=== PATIENT | female | born 1935 | race Native Hawaiian/Other Pacific Islander ===

== ENCOUNTER 2018-11-23 09:49 | Inpatient (IN) | payer MEDICARE, OTHER ==
[~2018-11-23] VITALS: Ht 167.6 cm; Wt 101.2 kg
[~2018-11-23 09:49] MED LIST: AMLO5TAB66 PO; BENA40TA9 PO; CHLO25TA3 PO; METF-444 PO; MONT10TA21 PO; PIOG30TA10 PO; POTA8TAB4 PO; SIMV-43 PO
[2018-11-23] MEDS ORDERED: LORazepam 2 MG/ML VIAL ONE (10:16)
[2018-11-23 10:17] LABS: BASOPHILS % (AUTO) 0.6 % (0.0-2.0); EOSINOPHILS % (AUTO) 0.7 % (1.0-6.0); HEMATOCRIT 46.4 % (36-46); HEMOGLOBIN 15.2 g/dL (12.0-16.0); LYMPHOCYTES # (AUTO) 1.7 K/uL (1.0-4.8); MEAN CORPUSCULAR HEMOGLOBIN 28.1 pg (26.0-34.0); MEAN CORPUSCULAR HGB CONC 32.8 G/dL (31.0-37.0); MEAN CORPUSCULAR VOLUME 86 fL (80-100); MONOCYTES # (AUTO) 0.5 K/uL (0.1-1.0); MONOCYTES % (AUTO) 5.5 % (2.0-9.0); NEUTROPHILS # (AUTO) 6.7 K/uL (1.8-7.7); NEUTROPHILS % (AUTO) 74.2 % (40.0-70.0); PLATELET COUNT (AUTO) 327 K/uL (150-450); RED BLOOD CELL COUNT(AUTO) 5.41 MIL/uL (4.00-5.20); RED CELL DISTRIBUTION WIDTH 14.4 % (11.5-14.5)
[2018-11-23 10:28] LABS: PROTHROMBIN TIME 10.4 SEC (9.4-11.6)
[2018-11-23] MEDS ORDERED: SODIUM CHLORIDE 0.9% 100 ML ONE (10:33)
[2018-11-23] MEDS ORDERED: IOVERSOL 350 MG/ML 100 ML VIAL ONE (10:33)
[2018-11-23 10:37] LABS: CALCIUM, TOTAL 9.6 mg/dL (8.8-10.5); CREATININE 1.09 mg/dL (0.60-1.30); POTASSIUM 3.5 mmol/L (3.5-5.1)
[2018-11-23] MEDS ORDERED: FEBU40T PO (10:41)
[2018-11-23] MEDS ORDERED: BACL10TA PO (10:41)
[2018-11-23] MEDS ORDERED: MAGOX PO (10:41)
[2018-11-23] MEDS ORDERED: OMEP20 PO (10:41)
[2018-11-23] MEDS ORDERED: ALBU8HFA PO (10:41)
[2018-11-23] MEDS ORDERED: FURO20 PO (10:41)
[2018-11-23] MEDS ORDERED: LOSA50TA64 PO (10:41)
[2018-11-23 10:43] LABS: ALBUMIN 3.9 g/dL (3.4-5.0); BILIRUBIN,TOTAL 0.9 mg/dL (0.1-1.0); TOTAL PROTEIN, SERUM 8.7 g/dL (6.4-8.2)
[2018-11-23] MEDS ORDERED: SODIUM CHLORIDE 0.9% 1,000 ML IV ONE ×2 (11:30→19:00)
[2018-11-23] MEDS ORDERED: AMLO10TA7 PO (11:44)
[2018-11-23] MEDS ORDERED: METF500T20 PO (11:44)
[2018-11-23] MEDS ORDERED: KDUR10 PO (11:44)
[2018-11-23] MEDS ORDERED: LORazepam 2 MG/ML VIAL IVP ONE ×2 (12:00→16:45)
[2018-11-23 14:16] LABS: APPEARANCE,URINE CLEAR (CLEAR); BILIRUBIN,URINE NEGATIVE (NEGATIVE); GLUCOSE, URINE (UA) 100 mg/dL (NEGATIVE); KETONES,URINE NEGATIVE (NEGATIVE); LEUKOCYTE ESTERASE ,URINE NEGATIVE (NEGATIVE); NITRATE,URINE NEGATIVE (NEGATIVE); OCCULT BLOOD,URINE TRACE (NEGATIVE); PH,URINE 7.5 (5.0-8.0); PROTEIN,URINE SEE CONFIRM (NEGATIVE); UROBILINOGEN,URINE 0.2 mg/dL (<=1.0)
[2018-11-23 14:22] LABS: AMPHET/METH SCREEN,URINE NEGATIVE (NEGATIVE); BARBITURATE SCREEN, URINE NEGATIVE (NEGATIVE); BENZODIAZEPINES SCREEN,URINE NEGATIVE (NEGATIVE); CANNABINOID SCREEN,URINE NEGATIVE (NEGATIVE); COCAINE SCREEN,URINE NEGATIVE (NEGATIVE); METHADONE SCREEN, URINE NEGATIVE (NEGATIVE); OPIATE SCREEN,URINE NEGATIVE (NEGATIVE)
[2018-11-23 14:28] LABS: PHENCYCLIDINE SCREEN,URINE NEGATIVE (NEGATIVE)
[2018-11-23 14:48] VITALS: BP 135/88
[2018-11-23 16:00] VITALS: BP 188/95
[2018-11-23] MEDS ORDERED: HydrALAZINE HCL 20 MG/ML VIAL IVP PRN (16:45)
[2018-11-23] MEDS ORDERED: DEXTROSE 50%-WATER 25 GM/50 ML SYRINGE IVP PRN (16:45)
[2018-11-23 16:58] LABS: SULFOSALICYLIC ACID,URINE 3+ (Negative); WBC,URINE 0-2 /HPF (0-5)
[2018-11-23 16:59] LABS: BACTERIA,URINE Few /HPF (None Seen); SQUAMOUS EPITHELIAL CELL,UR Few /LPF (None Seen)
[2018-11-23 18:08] LABS: THYROID STIMULATING HORMONE 3.47 uIU/mL (0.36-3.74)
[2018-11-23 19:45] VITALS: BP 157/78
[2018-11-23 23:33] VITALS: BP 154/75
[2018-11-24 03:55] LABS: GLUCOMETER DEV NAME(LOC) 5S.1; GLUCOSE,POINT OF CARE 167 MG/DL (70-110)
[2018-11-24 03:55] LABS: GLUCOMETER DEV NAME(LOC) 5S.1; GLUCOSE,POINT OF CARE 169 MG/DL (70-110)
[2018-11-24] MEDS ORDERED: 0.9% SODIUM CHLORIDE 10 ML SYRINGE IVP PRN (05:00)
[2018-11-24] MEDS ORDERED: SODIUM CHLORIDE 0.9% 1,000 ML IV SCH (05:00)
[2018-11-24] MEDS ORDERED: MAGNESIUM HYDROXIDE SUSPENSION 30 ML UDCUP PO PRN (05:00)
[2018-11-24] MEDS ORDERED: OxyCODONE HCL/ACETAMINOPHEN 5-325 MG TABLET PO PRN ×2 (05:00)
[2018-11-24] MEDS ORDERED: ACETAMINOPHEN 325 MG TABLET PO PRN (05:00)
[2018-11-24] MEDS ORDERED: ONDANSETRON HCL 4 MG/2 ML VIAL IVP PRN (05:00)
[2018-11-24 06:06] VITALS: BP 145/73
[2018-11-24 07:35] VITALS: BP 152/85
[2018-11-24] MEDS: DOCUSATE SODIUM 100 MG CAPSULE PO SCH ×2 (07:44→21:00)
[2018-11-24] MEDS: AmLODIPine BESYLATE 10 MG TABLET PO SCH (07:47)
[2018-11-24] MEDS: POTASSIUM CHLORIDE 10 MEQ ER TABLET PO SCH (07:47)
[2018-11-24] MEDS: FEBUXOSTAT 40 MG TABLET PO SCH (07:47)
[2018-11-24] MEDS: LOSARTAN POTASSIUM 50 MG TABLET PO SCH (07:47)
[2018-11-24] MEDS: ATORVASTATIN CALCIUM 20 MG TABLET PO SCH (07:48)
[2018-11-24] MEDS: FUROSEMIDE 20 MG TABLET PO SCH (07:48)
[2018-11-24] MEDS: FAMOTIDINE 10 MG/ML 2 ML VIAL IVP SCH (08:57)
[2018-11-24] MEDS: ASPIRIN 300 MG RECTAL SUPPOSITORY PR SCH (08:59)
[2018-11-24 11:15] VITALS: BP 138/70
[2018-11-24 11:15] LABS: GLUCOMETER DEV NAME(LOC) 5S.1; GLUCOSE,POINT OF CARE 174 MG/DL (70-110)
[2018-11-24] MEDS ORDERED: DEXTROSE 5%-0.45% SODIUM CHL 1,000 ML IV ONE (12:15)
[2018-11-24] MEDS: INSULIN LISPRO 100 UNITS/ML SQ PRN ×3 (12:41→21:16)
[2018-11-24 16:05] VITALS: BP 136/84
[2018-11-24 20:10] VITALS: BP 130/76
[2018-11-24 20:55] LABS: GLUCOMETER DEV NAME(LOC) 5S.2A; GLUCOSE,POINT OF CARE 150 MG/DL (70-110)
[2018-11-24 20:55] LABS: GLUCOMETER DEV NAME(LOC) 5N.2; GLUCOSE,POINT OF CARE 147 MG/DL (70-110)
[2018-11-24 23:55] VITALS: BP 128/77
[2018-11-25 05:29] VITALS: BP 129/84
[2018-11-25 05:31] LABS: BASOPHILS % (AUTO) 0.8 % (0.0-2.0); EOSINOPHILS % (AUTO) 2.9 % (1.0-6.0); HEMATOCRIT 42.2 % (36-46); HEMOGLOBIN 13.6 g/dL (12.0-16.0); LYMPHOCYTES # (AUTO) 1.7 K/uL (1.0-4.8); LYMPHOCYTES % (AUTO) 22.2 % (22.0-44.0); MEAN CORPUSCULAR HEMOGLOBIN 27.8 pg (26.0-34.0); MEAN CORPUSCULAR HGB CONC 32.1 G/dL (31.0-37.0); MEAN CORPUSCULAR VOLUME 87 fL (80-100); MONOCYTES # (AUTO) 0.8 K/uL (0.1-1.0); NEUTROPHILS # (AUTO) 4.9 K/uL (1.8-7.7); NEUTROPHILS % (AUTO) 64.1 % (40.0-70.0); PLATELET COUNT (AUTO) 292 K/uL (150-450); RED BLOOD CELL COUNT(AUTO) 4.88 MIL/uL (4.00-5.20); RED CELL DISTRIBUTION WIDTH 14.3 % (11.5-14.5)
[2018-11-25 05:47] LABS: CALCIUM, TOTAL 9.1 mg/dL (8.8-10.5); CREATININE 1.32 mg/dL (0.60-1.30)
[2018-11-25] MEDS ORDERED: POTASSIUM CHL 10 MEQ/WATER 50 ML IV PRN (06:15)
[2018-11-25] MEDS ORDERED: POTASSIUM CHLORIDE 20 MEQ ER TABLET PO PRN ×2 (06:15)
[2018-11-25 06:31] LABS: GLUCOMETER DEV NAME(LOC) 5N.1; GLUCOSE,POINT OF CARE 177 MG/DL (70-110)
[2018-11-25] MEDS: INSULIN LISPRO 100 UNITS/ML SQ PRN ×4 (06:35→21:37)
[2018-11-25] MEDS: ASPIRIN 300 MG RECTAL SUPPOSITORY PR SCH (08:34)
[2018-11-25] MEDS: LOSARTAN POTASSIUM 50 MG TABLET PO SCH (08:34)
[2018-11-25] MEDS: AmLODIPine BESYLATE 10 MG TABLET PO SCH (08:34)
[2018-11-25] MEDS: FAMOTIDINE 10 MG/ML 2 ML VIAL IVP SCH (08:34)
[2018-11-25] MEDS: FUROSEMIDE 20 MG TABLET PO SCH (08:34)
[2018-11-25] MEDS: FEBUXOSTAT 40 MG TABLET PO SCH (08:34)
[2018-11-25] MEDS: POTASSIUM CHLORIDE 10 MEQ ER TABLET PO SCH (08:34)
[2018-11-25] MEDS: DOCUSATE SODIUM 100 MG CAPSULE PO SCH ×2 (08:34→21:37)
[2018-11-25] MEDS: ATORVASTATIN CALCIUM 20 MG TABLET PO SCH (08:34)
[2018-11-25 09:35] VITALS: BP 128/89
[2018-11-25 11:34] VITALS: BP 131/72
[2018-11-25 12:46] LABS: GLUCOMETER DEV NAME(LOC) 5S.1; GLUCOSE,POINT OF CARE 169 MG/DL (70-110)
[2018-11-25 15:41] VITALS: BP 124/93
[2018-11-25 19:45] VITALS: BP 132/55
[2018-11-25 21:56] LABS: GLUCOMETER DEV NAME(LOC) 5N.2; GLUCOSE,POINT OF CARE 156 MG/DL (70-110)
[2018-11-26 00:10] VITALS: BP 124/69
[2018-11-26 04:56] VITALS: BP 119/60
[2018-11-26 05:11] LABS: GLUCOMETER DEV NAME(LOC) 5N.1; GLUCOSE,POINT OF CARE 174 MG/DL (70-110)
[2018-11-26 05:11] LABS: GLUCOMETER DEV NAME(LOC) 5N.1; GLUCOSE,POINT OF CARE 165 MG/DL (70-110)
[2018-11-26] MEDS: INSULIN LISPRO 100 UNITS/ML SQ PRN (06:44)
[2018-11-26 07:41] VITALS: BP 148/75
[2018-11-26] MEDS: FUROSEMIDE 20 MG TABLET PO SCH (08:25)
[2018-11-26] MEDS: POTASSIUM CHLORIDE 10 MEQ ER TABLET PO SCH (08:25)
[2018-11-26] MEDS: LOSARTAN POTASSIUM 50 MG TABLET PO SCH (08:25)
[2018-11-26] MEDS: AmLODIPine BESYLATE 10 MG TABLET PO SCH (08:25)
[2018-11-26] MEDS: ATORVASTATIN CALCIUM 20 MG TABLET PO SCH (08:25)
[2018-11-26] MEDS: DOCUSATE SODIUM 100 MG CAPSULE PO SCH (08:25)
[2018-11-26] MEDS: FAMOTIDINE 10 MG/ML 2 ML VIAL IVP SCH (08:26)
[2018-11-26] MEDS: FEBUXOSTAT 40 MG TABLET PO SCH (08:26)
[2018-11-26] MEDS ORDERED: ASPIRIN 325 MG TABLET PO SCH (09:00)
[2018-11-26] MEDS ORDERED: ASPI81 PO (11:15)
[2018-11-26] MEDS ORDERED: ATOR20TA86 PO (11:16)
[2018-11-26 11:33] VITALS: BP 156/89
[2018-11-26 12:12] LABS: GLUCOMETER DEV NAME(LOC) 5S.1; GLUCOSE,POINT OF CARE 155 MG/DL (70-110)
[2018-11-27 06:11] LABS: GLUCOMETER DEV NAME(LOC) 5S.2A; GLUCOSE,POINT OF CARE 152 MG/DL (70-110)
== END 2018-11-26 12:45 | disposition home or self-care (01) | DRG 917 ==
LOC: EMS 09:51 → 5S 13:37
PROVIDERS: ADMIT Hospitalist; ATTEND Hospitalist
DX: T48.201A Poisoning by unspecified drugs acting on muscles, accidental (unintentional), initial encounter (principal); G93.41 Metabolic encephalopathy; E78.00 Pure hypercholesterolemia, unspecified; M19.90 Unspecified osteoarthritis, unspecified site; I10 Essential (primary) hypertension; J45.909 Unspecified asthma, uncomplicated; E11.65 Type 2 diabetes mellitus with hyperglycemia; I65.29 Occlusion and stenosis of unspecified carotid artery; I65.09 Occlusion and stenosis of unspecified vertebral artery; E78.5 Hyperlipidemia, unspecified; E66.01 Morbid (severe) obesity due to excess calories; Z68.36 Body mass index [BMI] 36.0-36.9, adult; Z86.73 Personal history of transient ischemic attack (TIA), and cerebral infarction without residual deficits; Y92.89 Other specified places as the place of occurrence of the external cause
CPT/HCPCS: 51702; 70496; 70551; 82948; 84132; 84443; 86850; 86900; 86901; 92610; 93005; 93306; 93880; 97116; 97162; 97165; 97535; G0378; J2060; J3490; J7030; J7050

== ENCOUNTER 2024-02-16 06:09 | Inpatient (IN) | payer MEDICARE, OTHER ==
[~2024-02-16] VITALS: Ht 165.1 cm; Wt 89.4 kg
[~2024-02-16 06:09] MED LIST changes: +ALBU18HF7 IH; +ALEN70TA80 PO; +ALLO-97 PO; -AMLO5TAB66 PO; +ASPI-1450 PO; +ATOR20TA PO; -BENA40TA9 PO; -CHLO25TA3 PO; +EMPA25TA3 PO; +FLUT1BLS6 IH; +FURO20TA4 PO; +GABA-1216 PO; +HYDR25TA2 PO; +HYDR50TA36 PO; +INSU100I26 SQ; -METF-444 PO; +METF-446 PO; +METO-325 PO; -MONT10TA21 PO; +NIFE-40 PO; -PIOG30TA10 PO; +POTA-92 PO; -POTA8TAB4 PO; +SENN-297 PO; -SIMV-43 PO; +UMEC62.5 IH
[2024-02-16 06:22] LABS: EOSINOPHILS % (AUTO) 2.7 % (1.0-6.0); HEMATOCRIT 41.7 % (36-46); HEMOGLOBIN 13.8 g/dL (12.0-16.0); LYMPHOCYTES # (AUTO) 2.3 K/uL (1.0-4.8); LYMPHOCYTES % (AUTO) 24.7 % (22.0-44.0); MEAN CORPUSCULAR HEMOGLOBIN 28.6 pg (26.0-34.0); MEAN CORPUSCULAR HGB CONC 33.2 G/dL (31.0-37.0); MEAN CORPUSCULAR VOLUME 86 fL (80-100); MONOCYTES # (AUTO) 0.8 K/uL (0.1-1.0); MONOCYTES % (AUTO) 8.7 % (2.0-9.0); NEUTROPHILS # (AUTO) 5.7 K/uL (1.8-7.7); NEUTROPHILS % (AUTO) 62.9 % (40.0-70.0); PLATELET COUNT (AUTO) 284 K/uL (150-450); RED BLOOD CELL COUNT(AUTO) 4.83 MIL/uL (4.00-5.20); RED CELL DISTRIBUTION WIDTH 14.2 % (11.5-14.5); WHITE BLOOD COUNT (AUTO) 9.1 K/uL (4.5-11.0)
[2024-02-16] MEDS ORDERED: IOHEXOL 350 MG/ML 100 ML VIAL ONE (06:25)
[2024-02-16] MEDS ORDERED: SODIUM CHLORIDE 0.9% 100 ML ONE (06:25)
[2024-02-16] MEDS ORDERED: CLOP75TA60 PO (06:28)
[2024-02-16] MEDS: SODIUM CHLORIDE 0.9% 1,000 ML IV SCH (06:42)
[2024-02-16 06:47] LABS: PROTHROMBIN TIME 10.6 SEC (9.4-11.6)
[2024-02-16 06:48] LABS: ALBUMIN 3.3 g/dL (3.4-5.0); BILIRUBIN,TOTAL 0.8 mg/dL (0.1-1.0); CALCIUM, TOTAL 9.3 mg/dL (8.8-10.5); CREATININE 2.51 mg/dL (0.60-1.30); POTASSIUM 3.3 mmol/L (3.5-5.1); TOTAL PROTEIN, SERUM 7.5 g/dL (6.4-8.2)
[2024-02-16 06:52] LABS: TROPONIN I-HIGH SENSITIVITY 340 ng/L (<51)
[2024-02-16] MEDS: ASPIRIN 325 MG TABLET PO ONE (07:55)
[2024-02-16] MEDS: CLOPIDOGREL BISULFATE 75 MG TABLET PO ONE (07:55)
[2024-02-16 08:32] LABS: AMPHET/METH SCREEN,URINE NEGATIVE (NEGATIVE); BARBITURATE SCREEN, URINE NEGATIVE (NEGATIVE); BENZODIAZEPINES SCREEN,URINE NEGATIVE (NEGATIVE); CANNABINOID SCREEN,URINE NEGATIVE (NEGATIVE); COCAINE SCREEN,URINE NEGATIVE (NEGATIVE); METHADONE SCREEN, URINE NEGATIVE (NEGATIVE); OPIATE SCREEN,URINE NEGATIVE (NEGATIVE); PHENCYCLIDINE SCREEN,URINE NEGATIVE (NEGATIVE)
[2024-02-16 08:40] LABS: APPEARANCE,URINE CLEAR (CLEAR); BILIRUBIN,URINE NEGATIVE (NEGATIVE); COLOR,URINE LIGHT YELLOW (YELLOW); GLUCOSE, URINE (UA) >=1000 mg/dL (NEGATIVE); KETONES,URINE NEGATIVE (NEGATIVE); LEUKOCYTE ESTERASE ,URINE SMALL (NEGATIVE); NITRATE,URINE NEGATIVE (NEGATIVE); OCCULT BLOOD,URINE NEGATIVE (NEGATIVE); PROTEIN,URINE TRACE mg/dL (NEGATIVE); SPECIFIC GRAVITIY, URINE 1.018 (1.003-1.030); UROBILINOGEN,URINE <=1.0 mg/dL (<=1.0)
[2024-02-16 08:44] LABS: ALCOHOL, URINE DRUG SCREEN NEGATIVE (NEGATIVE)
[2024-02-16 08:53] LABS: BACTERIA,URINE None Seen /HPF (None Seen); RBC,URINE None Seen /HPF (0-2); SQUAMOUS EPITHELIAL CELL,UR Few /LPF (None Seen)
[2024-02-16 09:39] LABS: TROPONIN I-HIGH SENSITIVITY 305 ng/L (<51)
[2024-02-16 12:46] LABS: TROPONIN I-HIGH SENSITIVITY 304 ng/L (<51)
[2024-02-16] MEDS ORDERED: DEXTROSE 50%-WATER 25 GM/50 ML SYRINGE IVP PRN (14:00)
[2024-02-16] MEDS ORDERED: ONDANSETRON HCL 4 MG/2 ML VIAL IVP PRN (14:00)
[2024-02-16] MEDS ORDERED: BISACODYL 10 MG RECTAL RECTAL SUPPOSITORY PR PRN (14:00)
[2024-02-16] MEDS ORDERED: ZOLPIDEM TARTRATE 5 MG TABLET PO PRN (14:00)
[2024-02-16] MEDS ORDERED: MAGNESIUM HYDROXIDE SUSPENSION 30 ML UDCUP PO PRN (14:00)
[2024-02-16] MEDS ORDERED: MORPHINE SULFATE 2 MG/ML SYRINGE IVP PRN (14:00)
[2024-02-16 16:25] LABS: GLUCOMETER DEV NAME(LOC) ER.7; GLUCOSE,POINT OF CARE 126 MG/DL (70-110)
[2024-02-16 16:30] VITALS: BP 129/70; PULSE 92; RESP 18; TEMP 98.7; O2SAT 97
[2024-02-16] MEDS: HEPARIN SODIUM,PORCINE 5,000 UNITS/ML VIAL SQ SCH (16:53)
[2024-02-16] MEDS: INSULIN LISPRO 100 UNITS/ML SQ PRN (18:26)
[2024-02-16] MEDS: DOCUSATE SODIUM 100 MG CAPSULE PO SCH (20:13)
[2024-02-16 20:15] VITALS: BP 133/71; PULSE 80; RESP 18; TEMP 98.6; O2SAT 98
[2024-02-17] VITALS (11 sets, daily range): BP systolic 103–151; BP diastolic 63–102; PULSE 70–100; RESP 18–19; TEMP 97.8–98.2; O2SAT 94–100
[2024-02-17 06:26] LABS: BASOPHILS % (AUTO) 0.6 % (0.0-2.0); EOSINOPHILS % (AUTO) 2.6 % (1.0-6.0); HEMATOCRIT 40.8 % (36-46); HEMOGLOBIN 13.6 g/dL (12.0-16.0); LYMPHOCYTES # (AUTO) 1.6 K/uL (1.0-4.8); MEAN CORPUSCULAR HEMOGLOBIN 28.7 pg (26.0-34.0); MEAN CORPUSCULAR HGB CONC 33.3 G/dL (31.0-37.0); MEAN CORPUSCULAR VOLUME 86 fL (80-100); MONOCYTES # (AUTO) 0.7 K/uL (0.1-1.0); MONOCYTES % (AUTO) 8.8 % (2.0-9.0); NEUTROPHILS # (AUTO) 5.2 K/uL (1.8-7.7); PLATELET COUNT (AUTO) 276 K/uL (150-450); RED BLOOD CELL COUNT(AUTO) 4.73 MIL/uL (4.00-5.20); RED CELL DISTRIBUTION WIDTH 14.1 % (11.5-14.5); WHITE BLOOD COUNT (AUTO) 7.8 K/uL (4.5-11.0)
[2024-02-17 06:35] LABS: CREATININE 2.02 mg/dL (0.60-1.30); POTASSIUM 3.2 mmol/L (3.5-5.1)
[2024-02-17 07:12] LABS: TROPONIN I-HIGH SENSITIVITY 576 ng/L (<51)
[2024-02-17] MEDS: ASPIRIN 81 MG DR TABLET PO SCH (08:27)
[2024-02-17] MEDS: PANTOPRAZOLE SODIUM 40 MG DR TABLET PO SCH (08:27)
[2024-02-17] MEDS: ATORVASTATIN CALCIUM 20 MG TABLET PO SCH (08:27)
[2024-02-17] MEDS: CLOPIDOGREL BISULFATE 75 MG TABLET PO SCH (08:27)
[2024-02-17] MEDS: POTASSIUM CHLORIDE 20 MEQ ER TABLET PO ONE (12:41)
[2024-02-17] MEDS: SODIUM CHLORIDE 0.9% 500 ML IV ONE (12:41)
[2024-02-17] MEDS: HYDROCODONE/ACETAMINOPHEN 5-325 MG TABLET PO PRN (16:25)
[2024-02-18 05:01] VITALS: BP 132/70; PULSE 85; RESP 18; TEMP 98.1; O2SAT 95
[2024-02-18 07:14] LABS: BASOPHILS % (AUTO) 0.8 % (0.0-2.0); EOSINOPHILS % (AUTO) 3.5 % (1.0-6.0); HEMATOCRIT 39.7 % (36-46); HEMOGLOBIN 13.3 g/dL (12.0-16.0); LYMPHOCYTES # (AUTO) 1.4 K/uL (1.0-4.8); LYMPHOCYTES % (AUTO) 21.9 % (22.0-44.0); MEAN CORPUSCULAR HEMOGLOBIN 28.6 pg (26.0-34.0); MEAN CORPUSCULAR HGB CONC 33.4 G/dL (31.0-37.0); MEAN CORPUSCULAR VOLUME 86 fL (80-100); MONOCYTES # (AUTO) 0.6 K/uL (0.1-1.0); MONOCYTES % (AUTO) 9.1 % (2.0-9.0); NEUTROPHILS # (AUTO) 4.3 K/uL (1.8-7.7); NEUTROPHILS % (AUTO) 64.7 % (40.0-70.0); PLATELET COUNT (AUTO) 251 K/uL (150-450); RED BLOOD CELL COUNT(AUTO) 4.63 MIL/uL (4.00-5.20); RED CELL DISTRIBUTION WIDTH 14.3 % (11.5-14.5); WHITE BLOOD COUNT (AUTO) 6.6 K/uL (4.5-11.0)
[2024-02-18 07:18] LABS: CALCIUM, TOTAL 8.8 mg/dL (8.8-10.5); CREATININE 1.85 mg/dL (0.60-1.30); POTASSIUM 3.2 mmol/L (3.5-5.1)
[2024-02-18 07:28] VITALS: BP 142/78; PULSE 71; RESP 17; TEMP 97.9; O2SAT 94
[2024-02-18 07:52] LABS: TROPONIN I-HIGH SENSITIVITY 485 ng/L (<51)
[2024-02-18] MEDS: ATORVASTATIN CALCIUM 40 MG TABLET PO SCH (09:15)
[2024-02-18 11:49] VITALS: BP 150/68; PULSE 80; RESP 16; TEMP 97.7; O2SAT 94
[2024-02-18] MEDS: ACETAMINOPHEN 325 MG TABLET PO PRN (12:11)
[2024-02-18] MEDS: PERFLUTREN PROTEIN-A MICROSPHERES 0.22 MG/ML 3 ML VIAL IVP ONE (14:22)
[2024-02-18] MEDS: POTASSIUM CHLORIDE 10% 40 MEQ/30 ML LIQUID UDCUP PO ONE (16:26)
[2024-02-18 17:26] VITALS: BP 143/71; PULSE 80; RESP 18; TEMP 98.1; O2SAT 94
[2024-02-18 19:57] VITALS: BP 147/88; PULSE 75; RESP 18; TEMP 98.1; O2SAT 96
[2024-02-18 23:51] VITALS: BP 144/77; PULSE 82; RESP 18; TEMP 97.6; O2SAT 96
[2024-02-19 05:24] VITALS: BP 137/90; PULSE 85; RESP 18; TEMP 98.1; O2SAT 96
[2024-02-19 07:18] VITALS: BP 141/80; PULSE 72; RESP 19; TEMP 98.3; O2SAT 95
[2024-02-19 07:24] LABS: CALCIUM, TOTAL 9.1 mg/dL (8.8-10.5); CREATININE 1.63 mg/dL (0.60-1.30); POTASSIUM 3.4 mmol/L (3.5-5.1)
[2024-02-19 08:33] LABS: TROPONIN I-HIGH SENSITIVITY 418 ng/L (<51)
[2024-02-19 11:07] VITALS: BP 134/73; PULSE 75; RESP 18; TEMP 98; O2SAT 97
[2024-02-19] MEDS ORDERED: SODIUM CHLORIDE 0.9% 500 ML IV ONE (11:39)
[2024-02-19] MEDS ORDERED: ATOR40TA71 PO (12:22)
[2024-02-19] MEDS: POTASSIUM CHLORIDE 10% 40 MEQ/30 ML LIQUID UDCUP PO ONE (13:45)
[2024-02-19 20:17] LABS: GLUCOMETER DEV NAME(LOC) 5N.1D; GLUCOSE,POINT OF CARE 172 MG/DL (70-110)
[2024-02-19 20:17] LABS: GLUCOMETER DEV NAME(LOC) 5N.1D; GLUCOSE,POINT OF CARE 144 MG/DL (70-110)
[2024-02-19 20:17] LABS: GLUCOMETER DEV NAME(LOC) 5N.1D; GLUCOSE,POINT OF CARE 147 MG/DL (70-110)
[2024-02-19 20:17] LABS: GLUCOMETER DEV NAME(LOC) 5N.1D; GLUCOSE,POINT OF CARE 165 MG/DL (70-110)
[2024-02-19 20:21] LABS: GLUCOMETER DEV NAME(LOC) 5S.1D; GLUCOSE,POINT OF CARE 202 MG/DL (70-110)
[2024-02-19 20:21] LABS: GLUCOMETER DEV NAME(LOC) 5S.1D; GLUCOSE,POINT OF CARE 153 MG/DL (70-110)
[2024-02-19 20:21] LABS: GLUCOMETER DEV NAME(LOC) 5N.1D; GLUCOSE,POINT OF CARE 129 MG/DL (70-110)
[2024-02-19 20:21] LABS: GLUCOMETER DEV NAME(LOC) 5S.1D; GLUCOSE,POINT OF CARE 219 MG/DL (70-110)
[2024-02-19 20:21] LABS: GLUCOMETER DEV NAME(LOC) 5N.1D; GLUCOSE,POINT OF CARE 147 MG/DL (70-110)
[2024-02-19 20:21] LABS: GLUCOMETER DEV NAME(LOC) 5N.1D; GLUCOSE,POINT OF CARE 141 MG/DL (70-110)
[2024-02-19 20:41] LABS: GLUCOMETER DEV NAME(LOC) 5S.2D; GLUCOSE,POINT OF CARE 166 MG/DL (70-110)
[2024-02-19 20:41] LABS: GLUCOMETER DEV NAME(LOC) 5S.2D; GLUCOSE,POINT OF CARE 154 MG/DL (70-110)
== END 2024-02-19 14:00 | disposition home or self-care (01) | DRG 48 ==
LOC: EMS 06:10 → EDH 08:28 → 5S 16:27
PROVIDERS: ADMIT Hospitalist; ATTEND Hospitalist
DX: G90.89 Other disorders of autonomic nervous system (principal); N17.0 Acute kidney failure with tubular necrosis; I21.A1 Myocardial infarction type 2; E11.22 Type 2 diabetes mellitus with diabetic chronic kidney disease; I50.9 Heart failure, unspecified; I13.0 Hypertensive heart and chronic kidney disease with heart failure and stage 1 through stage 4 chronic kidney disease, or unspecified chronic kidney disease; E78.5 Hyperlipidemia, unspecified; N18.30 Chronic kidney disease, stage 3 unspecified; I95.1 Orthostatic hypotension; E87.6 Hypokalemia; M10.9 Gout, unspecified; J44.89 Other specified chronic obstructive pulmonary disease; I16.0 Hypertensive urgency; Z79.02 Long term (current) use of antithrombotics/antiplatelets; Z79.82 Long term (current) use of aspirin; Z79.899 Other long term (current) drug therapy; Z86.73 Personal history of transient ischemic attack (TIA), and cerebral infarction without residual deficits
CPT/HCPCS: 70496; 70498; 70551; 71045; 80048; 80053; 80061; 80307; 81001; 82948; 82962; 83036; 83880; 84484; 85025; 85610; 85730; 86850; 86900; 86901; 87081; 92610; 93005; 93306; 93880; 95816; 97116; 97162; 99285; C8924; J1644; J7040; J7050; 36415-L1; 36415-TC; 70450; 70450-TC